=== PATIENT | female | born 1995 | race Two or more races ===

== ENCOUNTER 2017-04-12 00:10 | Emergency (ER) | payer MEDICAID, OTHER ==
[~2017-04-12] VITALS: Ht 162.6 cm; Wt 97.7 kg
[2017-04-12 00:10] VITALS: BP 123/74
== END 2017-04-12 04:00 | disposition left against medical advice (07) ==
LOC: ER 00:10
DX: Z53.21 Procedure and treatment not carried out due to patient leaving prior to being seen by health care provider (principal)